=== PATIENT | female | born 1935 | race Caucasian/White ===

== ENCOUNTER 2017-08-05 19:29 | Inpatient (IN) | payer MEDICARE, BC ==
[2017-08-05 20:00] LABS: #Eosinphils 0.2 thou/uL (0.0-0.7); #Lymphocytes 1.9 thou/uL (1.20-3.40); #Monocytes 1.2 thou/uL (0.11-0.59); #Neutrophils 10.9 thou/uL (1.40-6.50); %Basophils 0.3 % (0.0-1.0); %Eosinophils 1.5 % (0.0-10.0); %Lymphocytes 13.3 % (21.0-51.0); %Monocytes 8.1 % (0.0-10.0); Mean Platelet Volume 9.1 fL (7.4-10.4); White Blood Cell (WBC) Count 14.2 thou/uL (4.8-10.8)
[2017-08-05 20:20] LABS: ALT (SGPT) 73 U/L (8-55); AST (SGOT) 100 U/L (5-34); Alkaline Phosphatase 100 U/L (40-150); Anion Gap 16 mmol/L (10-20); BUN (Urea Nitrogen) 30 mg/dL (9.8-20.1); Bilirubin, Total 0.5 mg/dL (0.2-1.2); Calc. Creatinine Clearance 0 mL/min (70-130); Calcium 8.7 mg/dL (7.8-10.44); Carbon Dioxide 25 mmol/L (23-31); Chloride 104 mmol/L (98-107); Estimated GFR-MDRD 30; Globulin 2.8 g/dL (2.4-3.5); Protein, Total 6.4 g/dL (6.0-8.3)
--- NOTE | 2017-08-05 20:22 | RAD ---
AP VIEW OF THE CHEST 08/05/17 INDICATION: Altered mental status. COMPARISON: Prior exam dated 11/29/05. FINDINGS: There are some reticulonodular opacities which are new in both lung bases. This can be seen with a r espiratory bronchiolitis. No air space consolidation is noted. There is a dorsal column stimulator o verlying the lower thoracic spine. Heart size and pulmonary vasculature are normal. No acute osseous abnormality is evident. IMPRESSION: 1. New reticulonodularity involving both lung bases can be seen with entity such as mucus plugg ing or respiratory bronchiolitis. No air space consolidation is evident to suggest ayah bacterial p neumonia. 2. Dorsal column stimulator. 3. Cholecystectomy clips. POS: [facility]
[2017-08-05 20:25] LABS: Troponin I Less than 0.010 ng/mL (< 0.028)
[2017-08-05 20:47] LABS: Bilirubin Negative (Negative); Blood, Urine Trace (Negative); Glucose, Urine (Dipstick) 100 mg/dL (Negative); Ketone, Urine Negative (Negative); Nitrite Negative (Negative); Protein, Urine (Dipstick) 30 mg/dL (Neg-Trace); Urobilinogen 0.2 mg/dL (0.2-1.0)
[2017-08-05 20:49] LABS: Bacteria/HPF None Seen HPF (None Seen); Hyaline Casts/LPF 7-10 HYALINE CAST LPF (0-3 Hyaline); RBC/HPF 0-3 HPF (0-3)
[2017-08-05 20:57] LABS: Renal Epithelial 0-3 HPF (0-3)
[2017-08-05] MEDS ORDERED: hydrALAZINE 20 MG/ML VIAL SLOW IVP PRN (22:28)
--- NOTE | 2017-08-05 23:41 | CT ---
CT OF THE BRAIN WITHOUT CONTRAST 08/05/17 INDICATION: History of inappropriate responses, confusion, incontinence, and altered mental status. COMPARISON: None. FINDINGS: Septum pellucidum and third ventricle are midline. Mild motion artifact slightly limits image detail . There is a subtle area of hypodensity involving the anterior left globus pallidus which may reflec t an acute lacunar infarct. No additional suspicious abnormality is evident. No acute intracranial h emorrhage is noted. Skull and extracranial soft tissues are unremarkable. There is a calcified extra -axial lesion seen adjacent to the falx measuring 9 mm suspicious for a small meningioma on image 22 of series 2. An additional suspicious meningioma is seen adjacent to the falx measuring 5 mm. Addit ional suspicious meningioma is seen near the vertex adjacent to the falx measuring 6 mm on image 25 of series 2. IMPRESSION: 1. Small focal hypodensity within the left globus pallidus may reflect an acute lacunar infarct . 2. No additional acute abnormality demonstrated. 3. Small extra-axial parafalcine meningiomas without associated mass effect. POS: [facility]
[2017-08-06 00:04] VITALS: BMI 25.7
[2017-08-06] MEDS: Sodium Chloride 0.9% 1,000 ML IV SCH ×2 (00:30→13:01)
--- NOTE | 2017-08-06 00:30 | ULT ---
CAROTID DUPLEX ULTRASOUND 08/05/17 INDICATION: CVA and bruit. FINDINGS: There is mild to moderate atherosclerotic plaque involving the common carotid artery and proximal in ternal carotid arteries bilaterally. The peak systolic velocity within the proximal left ICA was 207.8 cm/s with peak systolic velocity w ithin the left common carotid artery distally of 170.1 cm/s. The left IC/CC ratio is 1.22. The peak systolic velocity within the proximal right ICA was 111.5 cm/s whereas the peak systolic ve locity within the right common carotid artery was 70.7 cm/s. The right IC/CC ratio is 1.58. Antegrade flow was seen in both vertebral arteries. IMPRESSION: 1. High grade stenosis involving the proximal left ICA approaching 70% or greater. Recommend de dicated CTA of the neck utilizing IV contrast for additional evaluation. 2. No hemodynamically significant stenosis of the right internal carotid artery. POS: [facility]
--- NOTE | 2017-08-06 03:12 | HP ---
DATE OF ADMISSION: 08/05/2017 ADMITTING PHYSICIAN: Dr. Onur Olson. PRIMARY CARE PHYSICIAN: Dr. Narayan. CHIEF COMPLAINT: Altered mental status, confusion. HISTORY OF PRESENT ILLNESS: The patient is a pleasant 82-year-old, brought in by her family, who no ticed that the patient was lethargic, confused, and incontinent. The patient recently had a right k nee meniscal repair surgery 2 days ago and has been using opiates, but her last dose was at 7 this m orning. She continues to be confused and not at her baseline mentation per family. Brain CT shows possible lacunar infarct. REVIEW OF SYSTEMS: The following complete review of systems was negative, unless otherwise mentione d in the HPI or below: Constitutional: Weight loss or gain, sense of well-being, ability to conduct usual activities, exer cise tolerance. Skin/Breast: Rash, itching, changes in hair growth or loss, nail changes, breast lumps, tenderness, swelling, nipple discharge. Eyes: Vision, double vision, tearing, blind spots, pain. ENT/Mouth: Headaches (location, time of onset, duration, precipitating factors), vertigo, lighthead edness, injury. Vision, double vision, tearing, blind spots, pain, nose bleeding, colds, obstruction , discharge, dental difficulties, gingival bleeding, dentures, neck stiffness, pain, tenderness, mas ses in thyroid or other areas. Cardiovascular: Precordial pain, substernal distress, palpitations, syncope, dyspnea on exertion, o rthopnea, nocturnal paroxysmal dyspnea, edema, cyanosis, hypertension, heart murmurs, varicosities, phlebitis, claudication. Respiratory: Pain, shortness of breath, wheezing, stridor, cough, hemoptysis, fever or night sweats . Gastrointestinal: Poor appetite, dysphagia, indigestion, abdominal pain, heartburn, eructation, zac sea, vomiting, hematemesis, jaundice, constipation, or diarrhea, abnormal stools (phuong-colored, caron y, bloody, greasy, foul smelling), flatulence, hemorrhoids, recent changes in bowel habits. Genitourinary: Urgency, frequency, dysuria, nocturia, hematuria, polyuria, oliguria, unusual (or ch jin in) color of urine, stones, hesitancy, change in size of stream, dribbling, acute retention or incontinence, libido, potency. Musculoskeletal: Pain, swelling, redness or heat of muscles or joints, limitation, of motion, muscu lar weakness, atrophy, cramps. Neurologic/Psychiatric: Convulsions, paralyses, tremor, incoordination, paresthesias, difficulties with memory of speech, sensory or motor disturbances, or muscular coordination (ataxia, tremor), emo tional problems, anxiety, depression, previous psychiatric care, unusual perceptions, hallucinations . Allergy/Immunologic: Skin rash, anemia, bleeding tendency, polydipsia, polyuria, intolerance to hea t or cold. PAST MEDICAL HISTORY: Significant for degenerative joint disease, hypothyroidism, hypertension, CRISELDA D, valvular disease. PAST SURGICAL HISTORY: Right knee surgery, cholecystectomy, hysterectomy, spinal surgery, tummy tuc k, left foot surgery. SOCIAL HISTORY: She lives with her . Nonsmoker, no alcohol. Son is an orthopedic surgeon. FAMILY HISTORY: Reviewed and noncontributory. HOME MEDICATIONS: Aspirin 81 mg q. day, levothyroxine 125 mcg q. day, omeprazole 20 mg q. day, Rodrick vika 0.625 mg q. day, metoprolol 50 mg q. day, Aldactone 25 mg q. day, magnesium 250 mg q. day, calc ium 300 mg q. day, Lyrica 100 mg t.i.d., [place] 10 mg q.4-6 hours as needed, ibuprofen 800 mg q.8 amarilis rs as needed. DRUG ALLERGIES: No known drug allergies. PHYSICAL EXAMINATION: VITAL SIGNS: Temperature 99.9, blood pressure 127/77, pulse 70, respirations 20, satting 97% on annita m air. GENERAL: She is pleasant, nontoxic. Alert and oriented to person, place and time, but mildly repet itive and altered. HEAD: Normocephalic, atraumatic. EYES: PERRL. Extraocular muscles intact. NECK: Full range of motion. Trachea midline. No meningeal signs. CHEST: Chest expansion equal. No wheezing, no rales. Normal breath sounds. CARDIOVASCULAR: She has regular rate and rhythm. There is a systolic ejection murmur 2/6 as well a s bilateral carotid bruits. ABDOMEN: Nontender and nondistended. Positive bowel sounds. EXTREMITIES: No clubbing or cyanosis. Surgical scars and swelling of the right knee and bilateral ankle edema about 1+ to 2+. LABORATORY DATA AND IMAGES: Urinalysis: Yellow cloudy, negative for nitrite, negative for leukocyt e, no bacteria seen. TSH 5.53. Chest x-ray shows new reticulate nodularity involving both lung bas es, which can be consistent with mucus plug or respiratory bronchiolitis, but no airspace consolidat ion is evident. A dorsal column stimulator was seen on chest x-ray with cholecystectomy clips. CK is 0.5, troponin 0.01. CMP: Sodium 141, potassium 4.0, chloride 104, CO2 of 25, BUN 30, creatinine 1.66, glucose 117, AST 100, ALT 73. CBC shows a white count of 14.2, hemoglobin 11.8, hematocrit 3 7.0, MCV 100, platelets 180,000. There are 77% neutrophils. Ammonia level of 19. Once again brain CT performed in ED, official radiologist's impression pending. ASSESSMENT: 1. Lacunar infarct. 2. Acute kidney injury. 3. Hypertension. 4. Chronic congestive heart failure. 5. Hypothyroidism. PLAN: The patient will be admitted to stroke unit. We will consult Stroke Team. We will also do a ppropriate stroke workup to include a carotid ultrasound, echocardiogram and an MRI. The patient is currently on antiplatelet therapy with aspirin. We will increase the dose to 325 mg. We will gent ly hydrate the patient as she does have acute kidney injury, but in light of her history of chronic heart failure, we will gently hydrate her.
[2017-08-06] MEDS ORDERED: Aspirin 325 mg Enteric Coated Tablet PO SCH (09:00)
[2017-08-06] MEDS: Enoxaparin Sodium 40 MG/0.4 ML SYRINGE SC SCH (09:42)
[2017-08-06] MEDS ORDERED: [UNRECOGNIZED DRUG - REMARK] PO SCH (11:45)
[2017-08-06] MEDS ORDERED: Pregabalin 50 MG CAP PO SCH (13:00)
[2017-08-06] MEDS ORDERED: Ibuprofen 800 MG TAB PO PRN (14:14)
[2017-08-06] MEDS ORDERED: HYDROcodone/Acetaminophen 5/325 mg Tablet PO PRN (14:14)
--- NOTE | 2017-08-06 14:14 | PDOC.PN ---
- Subjective Encounter Start Date: 08/06/17 Encounter Start Time: 10:20 Pt seen for followup re: ischemic CVA. Denies chest pain, shortness of breath, fevers or chills. No nausea or vomiting. - Objective MAR Reviewed: Yes Vital Signs & Weight: Vital Signs (12 hours) Temp Pulse Resp BP Pulse Ox 08/06/17 10:55 98.9 F 86 12 150/61 H 96 08/06/17 08:50 98.9 F 86 12 96 08/06/17 07:45 98.6 F 80 12 132/65 96 08/06/17 03:39 99.2 F 74 16 149/73 H 96 Weight Admit Weight 164 lb 9.6 oz Weight 164 lb 9.6 oz I&O: 08/05/17 08/06/17 08/07/17 06:59 06:59 06:59 Intake Total 850 Balance 850 Result Diagrams: 08/05/17 19:47 08/05/17 19:47 EKG Reviewed by me: Yes (Tele: NSR) Phys Exam - Physical Examination Constitutional: NAD HEENT: PERRLA, moist MMs, sclera anicteric, oral pharynx no lesions Neck: no nodes, no JVD, supple, full ROM Respiratory: no wheezing, no rales, no rhonchi, clear to auscultation bilateral Cardiovascular: RRR, no rub Gastrointestinal: soft, non-tender, no distention, positive bowel sounds Musculoskeletal: pulses present Neurological: moves all 4 limbs Lymphatic: no nodes Psychiatric: normal affect, A&O x 3 Skin: no rash, normal turgor, cap refill <2 seconds Dx/Plan (1) Ischemic cerebrovascular accident (CVA) Code(s): I63.9 - CEREBRAL INFARCTION, UNSPECIFIED Status: Acute (2) ILIA (acute kidney injury) Code(s): N17.9 - ACUTE KIDNEY FAILURE, UNSPECIFIED Status: Acute (3) Carotid stenosis Code(s): I65.29 - OCCLUSION AND STENOSIS OF UNSPECIFIED CAROTID ARTERY Status : Acute (4) HTN (hypertension) Code(s): I10 - ESSENTIAL (PRIMARY) HYPERTENSION Status: Chronic (5) Hypothyroidism Code(s): E03.9 - HYPOTHYROIDISM, UNSPECIFIED Status: Chronic (6) Encephalopathy Code(s): G93.40 - ENCEPHALOPATHY, UNSPECIFIED Status: Resolved - Plan PT/OT, out of bed/ambulate, DVT proph w/lovenox * . Continue aspirin (increased dose), start statin. Hydrate pt, recheck creatinine (may need CTA neck when creatinine improves). Consult CV surgery. Await neurology input. TSH mildly elevated, check free T3/T4. Review of Systems - Review of Systems Constitutional: negative: Fever, Chills, Sweats, Weakness, Malaise Respiratory: negative: Cough, Dry, Shortness of Breath, Hemoptysis, SOB with Excertion, Pleuritic Pain, Sputum, Wheezing Cardiovascular: negative: Chest Pain, Palpitations, Orthopnea, Paroxysmal Noc. Dyspnea, Edema, Light Headedness Gastrointestinal: negative: Nausea, Vomiting, Abdominal Pain, Diarrhea, Constipation, Melena, Hematochezia Skin: negative: Rash, Lesions, Saul, Bruising Neurological: negative: Weakness, Numbness, Incoordination, Change in Speech, Confusion, Seizures - Medications/Allergies Allergies/Adverse Reactions: Allergies Allergy/AdvReac Type Severity Reaction Status Date / Time No Known Drug Allergies Allergy Verified 08/06/17 01:21 Medications: Current Medications Aspirin (Ecotrin) 325 mg PO DAILY [facility] Last Admin: 08/06/17 09:41 Dose: 325 mg Enoxaparin Sodium (Lovenox) 40 mg SC 0900 [facility] Last Admin: 08/06/17 09:42 Dose: 40 mg Hydralazine HCl (Apresoline) 10 mg SLOW IVP Q4H PRN PRN Reason: BP > 220/110 Sodium Chloride (Normal Saline 0.9%) 1,000 mls @ 75 mls/hr IV .[id number] [facility] Last Admin: 08/06/17 13:01 Dose: 1,000 mls Pregabalin (Lyrica) 100 mg PO TID [facility] Sodium Chloride (Flush - Normal Saline) 10 ml IVF Q12HR [facility] Last Admin: 08/06/17 09:42 Dose: 10 ml Sodium Chloride (Flush - Normal Saline) 10 ml IVF PRN PRN PRN Reason: Saline Flush
[2017-08-06] MEDS ORDERED: Non-Formulary Item 1 EACH (Pregabalin [Lyrica] 100 MG) PO SCH (15:00)
[2017-08-06] MEDS: Pregabalin 50 MG CAP PO SCH ×2 (15:27→20:45)
--- NOTE | 2017-08-06 20:58 | CON ---
DATE OF CONSULTATION: 08/06/2017 REASON FOR CONSULTATION: Carotid artery evaluation. PERTINENT HISTORY: The patient is an 82-year-old female who underwent right meniscal surgery 2 days ago in [place], [place]. She was placed on postoperative narcotics. She presented here last evening with lethargy, confusion, and incontinence. She was found to have a leukocytosis and urinary tract infection. Noncontrast CT scan of the brain was suggestive of a possible small , focal acute left lacunar infarct. Carotid ultrasound was suggestive of a moderate left ICA stenosis based on peak systolic velocity of 208 cm/second. On this study, the left ICA/CCA ratio was normal at 1.22. Bilateral plaque was noted on the carotid ultrasound. She has had no prior history of stroke. No acute lateralizing signs were described at this time except for a possible element of expressive aphasia. She currently appears normal with no speech or right-sided symptoms. On examination she does have a prominent precordial murmur with transmission to each carotid area; however, this does appear louder in the left neck and could represent a bruit. PAST MEDICAL HISTORY: 1. Degenerative joint disease. 2. Hypothyroidism. 3. Hypertension. 4. Gastroesophageal reflux disease. 5. Some form of valvular heart disease followed by a local material worker, details unknown. PAST SURGICAL HISTORY: 1. Cholecystectomy. 2. Hysterectomy. 3. Bladder suspension. 4. Back surgery. 5. Left foot surgery. 6. Recent right knee surgery as described above. SOCIAL HISTORY: Nonsmoker. Nondrinker. ALLERGIES: None. FAMILY HISTORY: Noncontributory for stroke. CURRENT MEDICATIONS: Lyrica, aspirin, Lipitor, calcium carbonate, Lovenox, estrogen, Synthroid, mag oxide, metoprolol, Protonix, and spironolactone. LABORATORY DATA: Creatinine 1.66. Hemoglobin 11.8, platelet count 180,000, white blood cell count 14.2. Urinalysis was suggestive of a UTI with culture pending. PHYSICAL EXAMINATION: VITAL SIGNS: Height 5 feet 4 inches, weight 164 pounds. Blood pressure 145/97 , heart rate 81, temperature is 98.9. GENERAL: Elderly female in no acute distress. She is fully oriented. HEENT: Grossly unremarkable. NECK: Without JVD or adenopathy. LUNGS: Clear with good inspiratory effort. HEART: Regular rate and rhythm with a prominent precordial murmur as described above. ABDOMEN: Soft and nontender, without palpable mass or hepatosplenomegaly. EXTREMITIES: Without edema. VASCULAR: Palpable radial, femoral, and ankle pulses bilaterally. Possible left carotid bruit superimposed on transmitted heart murmur. NEUROLOGIC: No focal deficits at this time. IMPRESSION: Moderate left carotid artery stenosis as suggested by carotid ultrasound. RECOMMENDATIONS: CTA at this time versus followup carotid ultrasound in 6 months. The patient and family wish, however, to confer with Dr. Narayan prior to proceeding with any further tests. I have asked them to have Dr. Narayan refer her back to me should he wish me to manage this problem. BENIGNO
[2017-08-06] MEDS ORDERED: Atorvastatin Calcium 20 MG TAB PO SCH (21:00)
--- NOTE | 2017-08-06 21:23 | CON ---
DATE OF CONSULTATION: 08/06/2017 CONSULTING PHYSICIAN: Hospitalist Service. IMPRESSION: 1. Transient lethargy secondary to narcotics and urinary tract infection. 2. Asymptomatic chronic small basal ganglia infarct. 3. Moderate left carotid stenosis which does not appear significant at this point to warrant surger y. PLAN: 1. Continue aspirin. 2. Begin statin therapy. 3. Address the urinary tract infection. 4. Follow up with Dr. Narayan. Ms. Mojica is an 82-year-old white female who just recently underwent surgery about 3 days ago. She is receiving some pain medication to address her leg pain. Her family noted that she was very hard to arouse and became concerned. She was subsequently brought into the emergency room for evaluation . She had a CT scan of the brain which shows a moderate amount of small vessel ischemic changes as well as lacunar infarction in the basal ganglia region on the left side. She had a carotid ultrasou nd done which showed a moderate amount of stenosis on the left. She has been followed by Dr. Helene graham or a number of years for this condition and has not been thought to be so severe enough to warrant s urgery. She has not had any new focal neurologic symptoms since admission, she has become more aler t and back to her baseline. She is without complaints of any numbness, tingling, slurred speech or difficulty swallowing. Past history, otherwise negative. ALLERGIES: None. SOCIAL HISTORY: No tobacco use. Lives at home with her . FAMILY HISTORY: Noncontributory. REVIEW OF SYSTEMS: No complaint of headache, nausea, vomiting, vertigo, chest pain, shortness of br eath. PHYSICAL EXAMINATION: GENERAL: She is a healthy appearing elderly lady in no distress. HEENT: Pupils equal and reactive. Conjunctivae clear. Oropharynx clear. NECK: Supple, no lymphadenopathy noted. EXTREMITIES: No cyanosis noted. NEUROLOGIC: She is alert and appropriate. Her speech is fluent and clear. Cranial nerves II-XII a re intact. Motor exam shows no focal weakness. Sensation is intact to light touch. [id number] movements were symmetric. She can walk independently with a little assistance due to the pain in h er leg. IMAGING: EKG shows sinus rhythm with occasional PVCs. SUMMARY: Does not appear to be any acute neurologic issue other than some transient lethargy second jason to medication which might have been amplified by the fact she has a urinary tract infection and a mildly elevated white count. I think she is stable for discharge home on antibiotics and continue her anti-stroke therapy.
[2017-08-07 05:33] LABS: #Basophils 0.1 thou/uL (0.0-0.2); #Eosinphils 0.2 thou/uL (0.0-0.7); #Lymphocytes 1.9 thou/uL (1.20-3.40); #Monocytes 0.6 thou/uL (0.11-0.59); #Neutrophils 3.8 thou/uL (1.40-6.50); %Basophils 0.9 % (0.0-1.0); %Eosinophils 2.6 % (0.0-10.0); %Lymphocytes 29.6 % (21.0-51.0); Hematocrit 31.4 % (36.0-47.0); Mean Platelet Volume 8.9 fL (7.4-10.4); Red Blood Cell (RBC) Count 3.18 mill/uL (4.20-5.40); White Blood Cell (WBC) Count 6.5 thou/uL (4.8-10.8)
[2017-08-07 05:55] LABS: Anion Gap 10 mmol/L (10-20); BUN (Urea Nitrogen) 13 mg/dL (9.8-20.1); Calc. Creatinine Clearance 74 mL/min (70-130); Calcium 8.5 mg/dL (7.8-10.44); Carbon Dioxide 27 mmol/L (23-31); Chloride 108 mmol/L (98-107); Estimated GFR-MDRD 80
[2017-08-07] MEDS ORDERED: Levothyroxine Sodium 112 MCG TAB PO SCH (06:00)
[2017-08-07] MEDS: Sodium Chloride 0.9% 1,000 ML IV SCH (06:29)
[2017-08-07 07:05] LABS: Free T3 1.88 pg/mL (1.71-3.71)
[2017-08-07] MEDS ORDERED: Spironolactone 25 MG TAB PO SCH (08:00)
[2017-08-07] MEDS: Pregabalin 50 MG CAP PO SCH ×2 (08:53→14:44)
[2017-08-07] MEDS ORDERED: Calcium Carbonate 600 MG TAB PO SCH (09:00)
[2017-08-07] MEDS ORDERED: Aspirin 325 MG TAB PO SCH (09:00)
[2017-08-07] MEDS ORDERED: Magnesium Oxide 250 MG TAB PO SCH (09:00)
[2017-08-07] MEDS ORDERED: Nitrofurantoin Monohyd/M-Cryst 100 MG CAP PO SCH (09:00)
[2017-08-07] MEDS: Enoxaparin Sodium 40 MG/0.4 ML SYRINGE SC SCH (09:01)
[2017-08-07] MEDS ORDERED: Amlodipine 5 MG TAB PO SCH (11:30)
[2017-08-07] MEDS ORDERED: hydrALAZINE 20 MG/ML VIAL SLOW IVP SCH (12:15)
--- NOTE | 2017-08-07 13:25 | PDOC.PN ---
- Subjective Encounter Start Date: 08/07/17 Encounter Start Time: 08:20 Pt seen for followup re: ischemic CVA. Denies chest pain, shortness of breath, weakness. - Objective MAR Reviewed: Yes Vital Signs & Weight: Vital Signs (12 hours) Temp Pulse Resp BP Pulse Ox 08/07/17 12:16 87 08/07/17 11:28 87 08/07/17 11:19 98.5 F 74 18 197/77 H 95 08/07/17 09:58 195/75 H 08/07/17 08:50 98.5 F 87 18 97 08/07/17 07:20 98.5 F 87 18 168/72 H 97 08/07/17 03:54 99.9 F H 87 16 203/97 H 95 Weight Admit Weight 164 lb 9.6 oz Weight 166 lb 4.8 oz I&O: 08/06/17 08/07/17 08/08/17 06:59 06:59 06:59 Intake Total 850 2978 Balance 850 2978 Result Diagrams: 08/07/17 05:15 08/07/17 05:15 EKG Reviewed by me: Yes (Tele: NSR) Phys Exam - Physical Examination Constitutional: NAD HEENT: moist MMs Neck: supple Respiratory: clear to auscultation bilateral Cardiovascular: RRR Gastrointestinal: soft Musculoskeletal: pulses present Neurological: non-focal, moves all 4 limbs Psychiatric: normal affect, A&O x 3 Skin: no rash Dx/Plan (1) Ischemic cerebrovascular accident (CVA) Code(s): I63.9 - CEREBRAL INFARCTION, UNSPECIFIED Status: Acute (2) Carotid stenosis Code(s): I65.29 - OCCLUSION AND STENOSIS OF UNSPECIFIED CAROTID ARTERY Status : Acute (3) HTN (hypertension) Code(s): I10 - ESSENTIAL (PRIMARY) HYPERTENSION Status: Chronic (4) Hypothyroidism Code(s): E03.9 - HYPOTHYROIDISM, UNSPECIFIED Status: Chronic (5) Encephalopathy Code(s): G93.40 - ENCEPHALOPATHY, UNSPECIFIED Status: Resolved (6) ILIA (acute kidney injury) Code(s): N17.9 - ACUTE KIDNEY FAILURE, UNSPECIFIED Status: Resolved - Plan PT/OT, out of bed/ambulate, DVT proph w/SCDs * . ILIA resolved. Continue aspirin, statin. Start amlodipine for hypertension (BP still home). Monitor vital signs, titrate antihypertensives as needed. Inpt rehab vs. HH. Review of Systems - Review of Systems Respiratory: negative: Cough, Dry, Shortness of Breath, Hemoptysis, SOB with Excertion, Pleuritic Pain, Sputum, Wheezing Cardiovascular: negative: Chest Pain, Palpitations, Orthopnea, Paroxysmal Noc. Dyspnea, Edema, Light Headedness Neurological: negative: Weakness, Numbness, Incoordination, Change in Speech, Confusion, Seizures - Medications/Allergies Allergies/Adverse Reactions: Allergies Allergy/AdvReac Type Severity Reaction Status Date / Time No Known Drug Allergies Allergy Verified 08/06/17 01:21 Medications: Current Medications Hydrocodone Bitart/Acetaminophen ([place] 5/325) 1 tab PO Q6H PRN PRN Reason: Pain Amlodipine Besylate (Norvasc) 5 mg PO NOW [facility] Stop: 08/07/17 13:30 Last Admin: 08/07/17 11:28 Dose: 5 mg Amlodipine Besylate (Norvasc) 5 mg PO DAILY [facility] Aspirin (Aspirin) 325 mg PO DAILY [facility] Last Admin: 08/07/17 08:57 Dose: 325 mg Atorvastatin Calcium (Lipitor) 20 mg PO HS [facility] Last Admin: 08/06/17 20:47 Dose: 20 mg Calcium Carbonate (Caltrate) 600 mg PO DAILY [facility] Last Admin: 08/07/17 08:57 Dose: 600 mg Enoxaparin Sodium (Lovenox) 40 mg SC 0900 [facility] Last Admin: 08/07/17 09:01 Dose: 40 mg Estrogens Conjugated (Premarin) 0.625 mg PO DAILY [facility] Last Admin: 08/07/17 08:56 Dose: 0.625 mg Hydralazine HCl (Apresoline) 10 mg SLOW IVP Q4H PRN PRN Reason: BP > 220/110 Hydralazine HCl (Apresoline) 10 mg SLOW IVP NOW [facility] Stop: 08/07/17 14:15 Last Admin: 08/07/17 12:16 Dose: 10 mg Sodium Chloride (Normal Saline 0.9%) 1,000 mls @ 75 mls/hr IV .[id number] [facility] Last Admin: 08/07/17 06:29 Dose: 1,000 mls Ibuprofen (Motrin) 800 mg PO Q8H PRN PRN Reason: Pain Last Admin: 08/06/17 15:44 Dose: 800 mg Levothyroxine Sodium (Synthroid) 112 mcg PO 0600 [facility] Last Admin: 08/07/17 06:29 Dose: 112 mcg Magnesium Oxide (Magnesium Oxide) 250 mg PO DAILY [facility] Last Admin: 08/07/17 08:57 Dose: 250 mg Metoprolol Succinate (Toprol Xl) 50 mg PO DAILY [facility] Last Admin: 08/07/17 08:57 Dose: 50 mg Nitrofurantoin Macrocrystals (Macrobid) 100 mg PO BID [facility] Last Admin: 08/07/17 09:07 Dose: 100 mg Pantoprazole Sodium (Protonix) 40 mg PO DAILY [facility] Last Admin: 08/07/17 08:57 Dose: 40 mg Pregabalin (Lyrica) 100 mg PO TID [facility] Last Admin: 08/07/17 08:53 Dose: 100 mg Sodium Chloride (Flush - Normal Saline) 10 ml IVF Q12HR [facility] Last Admin: 08/07/17 09:02 Dose: Not Given Sodium Chloride (Flush - Normal Saline) 10 ml IVF PRN PRN PRN Reason: Saline Flush Spironolactone (Aldactone) 25 mg PO QAM-WM [facility] Last Admin: 08/07/17 08:53 Dose: 25 mg
[2017-08-07 15:35] VITALS: BP 156/66; TEMP 99.3
--- NOTE | 2017-08-07 16:43 | DIS ---
DATE OF ADMISSION: 08/05/2017 DATE OF DISCHARGE: 08/07/2017 PRIMARY CARE PHYSICIAN: Gera Narayan M.D. DISCHARGE DIAGNOSES: 1. Ischemic cerebrovascular accident. 2. Carotid stenosis. 3. Transient lethargy, likely secondary to narcotics. 4. Urine cultures negative. CONDITION OF PATIENT AT THE TIME OF DISCHARGE: Stable. I assessed Ms. Mojica on the day of discharge. She denies any chest pain or shortness of breath. Sh e denies any fevers or chills. Blood pressure was elevated, but subsequently decreased after admini stration of hydralazine and amlodipine. S1 and S2 are heard, regular. Lungs are clear to auscultat ion bilaterally. DISCHARGE MEDICATIONS: Aspirin 325 mg daily, amlodipine 5 mg daily, Lipitor 20 mg at bedtime, calci um carbonate 600 mg daily, Premarin 0.625 mg daily, ibuprofen 800 mg every 8 hours as needed, levoth yroxine 112 mcg daily, magnesium 250 mg daily, Toprol-XL 50 mg daily, omeprazole 20 mg daily, Lyrica 100 mg 3 times a day, and spironolactone 25 mg daily. HOSPITAL COURSE: Ms. Mojica is a pleasant 82-year-old lady who was admitted to [facility] on 08/05/2017 for lethargy and suspected stroke. CT scan of the brain on 08/05/2017 sh owed small focal hypodensity within the left global pallidus, which may reflect an acute lacunar inf arct. She was seen by Neurology Service. Carotid Dopplers showed high grade stenosis involving the proximal left ICA approaching 70% or greater. Dedicated CT angiogram of the neck with IV contrast was recommended. There was no hemodynamically stenosis of the right internal carotid artery. She w as seen by Cardiovascular Surgery. After discussion with CV Surgery Service, Ms. Mojica did not wish to have further testing at this time. She will follow up with her primary care physician. A 2D echocardiogram showed left ventricular ejection fraction 60%-65% and grade 2/3 diastolic dysfun ction. She had moderately elevated pulmonary artery pressures at 56 mmHg. She was seen by therapy services. Recommendations were made for either inpatient rehabilitation or home with home health. Ms. Mojica did not wish to have home health services at home or to go to [facility] rehabilitation. She wished to go home. She will follow up with her primary care physician if she needs referral for home health. Her blood pressure was elevated on the day of discharge. It improved with hydralazine and amlodipin e. I recommended another night stay in the hospital to ensure her blood pressure remained stable. However, she did not wish to stay in the hospital and we will follow up with her primary care physic jamey. Risks were explained to her of worsening blood pressure and its complications. She is making an informed decision to follow up with her primary care physician. She is advised to check her bloo d pressure and heart rate 3 times a day and to follow up with her primary care physician with those numbers. Many thanks for allowing me to participate in your patient's care. Please feel free to contact me w ith any questions or concerns. DISCHARGE DESTINATION: Home. TOTAL AMOUNT OF TIME SPENT COORDINATING THIS DISCHARGE: 33 minutes.
[2017-08-08] MEDS ORDERED: Amlodipine 5 MG TAB PO SCH (09:00)
--- NOTE | 2017-08-08 15:23 | EKG ---
Test Reason : AMS Blood Pressure : / mmHG Vent. Rate : 071 BPM Atrial Rate : 071 BPM P-R Int : 142 ms QRS Dur : 074 ms QT Int : 376 ms P-R-T Axes : 080 -02 053 degrees QTc Int : 408 ms Normal sinus rhythm No STEMI Abnormal ECG Confirmed by RAHAT JOHNSON M.D. ([id number]), slot editor ROXANN CHAN ([id number] on 08/08/2017 3:22:33 PM Referred By: ALEX Confirmed By:RAHAT JOHNSON M.D.
== END 2017-08-07 16:44 | disposition home or self-care (01) | DRG 64 ==
LOC: ERS 19:29 → 2SE 23:28 → 2NO 08-07 15:39 → 2SE 08-07 15:42
PROVIDERS: ADMIT Internal Medicine Addiction Medicine; ATTEND Internal Medicine Addiction Medicine
DX: I63.232 Cerebral infarction due to unspecified occlusion or stenosis of left carotid arteries (principal); G93.40 Encephalopathy, unspecified; N17.9 Acute kidney failure, unspecified; I50.9 Heart failure, unspecified; Z90.49 Acquired absence of other specified parts of digestive tract; Z90.710 Acquired absence of both cervix and uterus; I11.0 Hypertensive heart disease with heart failure; E03.9 Hypothyroidism, unspecified; R53.83 Other fatigue; T40.605A Adverse effect of unspecified narcotics, initial encounter; D72.829 Elevated white blood cell count, unspecified
CPT/HCPCS: 36415; 36416; 51701; 70450; 71010; 80048; 80053; 80061; 81003; 81015; 82140; 82553; 84439; 84443; 84481; 84484; 85025; 87086; 93005; 93306; 93880; 96360; 96361; A4216; A4353; G8978-GP-CM; G8979-GP-CK; G8987-GO-CJ; G8988-GO-CI; G8996-GN-CH; G8997-GN-CH; J0360; J1650

== ENCOUNTER 2017-10-15 09:33 | Day surgery (SDC) | payer MEDICARE, BC ==
[2017-10-14 13:15] VITALS: BMI 23.4
[2017-10-15] MEDS ORDERED: Diprivan 20 ML ONE (12:01)
--- NOTE | 2017-10-15 12:47 | OP ---
INDICATIONS FOR SURGERY: This is an 82-year-old woman with paroxysmal atrial fibrillation. PROCEDURE PERFORMED: Electrical cardioversion. DESCRIPTION OF PROCEDURE: The patient was taken to the PACU. The patient is sedated by anesthesiolo gy. The patient was shocked with 200 joules of synchronized electricity. The patient converted to n ormal sinus rhythm. IMPRESSION: Successful electrical cardioversion.
--- NOTE | 2017-10-15 13:13 | ECHO ---
TRANSESOPHAGEAL ECHOCARDIOGRAM: DATE OF PROCEDURE: 10/15/17 INDICATION: 82-year-old woman with paroxysmal atrial fibrillation. DESCRIPTION OF PROCEDURE: The patient was taken to the PACU. The patient was sedated by anesthesiology. A transesophageal probe was placed in the distal esophagus and stomach. Echocardiographic images were obtained. The transesophageal probe was removed. FINDINGS: 1. Normal left ventricular systolic function. 2. Left atrial enlargement. 3. Aortic valve leaflets are mildly sclerotic. 4. Mild to moderate mitral regurgitation. 5. Mild to moderate aortic regurgitation. 6. Mild to moderate tricuspid regurgitation. 7. No thrombus noted in the left atrium or left atrial appendage. 8. Atherosclerotic debris in the descending aorta. IMPRESSION: No formed thrombus in the left atrium or left atrial appendage.
== END 2017-10-15 13:10 | disposition home or self-care (01) ==
LOC: SDC 09:33
PROVIDERS: ATTEND Internal Medicine Cardiovascular Disease
DX: I48.0 Paroxysmal atrial fibrillation (principal); I25.10 Atherosclerotic heart disease of native coronary artery without angina pectoris; M19.90 Unspecified osteoarthritis, unspecified site; K21.9 Gastro-esophageal reflux disease without esophagitis; I10 Essential (primary) hypertension; E07.9 Disorder of thyroid, unspecified; Z79.01 Long term (current) use of anticoagulants; Z79.82 Long term (current) use of aspirin; Z79.890 Hormone replacement therapy; Z79.899 Other long term (current) drug therapy; Z90.49 Acquired absence of other specified parts of digestive tract; Z90.710 Acquired absence of both cervix and uterus; Z98.890 Other specified postprocedural states; Z86.73 Personal history of transient ischemic attack (TIA), and cerebral infarction without residual deficits
CPT/HCPCS: 92960; 93005; 93010; 93312; J2704

== ENCOUNTER 2018-02-10 15:55 | Outpatient (CLI) | payer MEDICARE, BC ==
[2018-02-10 17:03] LABS: Anion Gap 13 mmol/L (10-20); BUN (Urea Nitrogen) 25 mg/dL (9.8-20.1); Calc. Creatinine Clearance 0 mL/min (70-130); Calcium 8.8 mg/dL (7.8-10.44); Carbon Dioxide 28 mmol/L (23-31); Chloride 104 mmol/L (98-107); Estimated GFR-MDRD 49; Glucose 121 mg/dL (83-110); Potassium 4.8 mmol/L (3.5-5.1); Sodium 140 mmol/L (136-145)
== END 2018-02-10 15:56 | disposition home or self-care (01) ==
LOC: LABBT 15:55
PROVIDERS: ATTEND Internal Medicine Cardiovascular Disease
DX: Z01.818 Encounter for other preprocedural examination (principal); I48.0 Paroxysmal atrial fibrillation
CPT/HCPCS: 80048

== ENCOUNTER 2018-02-12 06:19 | Day surgery (SDC) | payer MEDICARE, BC ==
[2018-02-10 16:15] VITALS: BMI 26.4
[2018-02-12] MEDS ORDERED: PROPOFOL 200 MG/20 ML VIAL ONE (10:07)
[2018-02-12] MEDS ORDERED: PHENYLEPHRINE-NS 100 MCG/ML 10 ML SYRINGE ONE (10:07)
[2018-02-12] MEDS ORDERED: Lidocaine 1% PF 5 ML VIAL ONE (10:07)
--- NOTE | 2018-02-12 14:49 | OP ---
PROCEDURE NOTE: Date: 02/12/18 PROCEDURE: Electrical cardioversion. INDICATION FOR PROCEDURE: This is an 82-year-old woman with paroxysmal atrial fibrillation. DESCRIPTION OF PROCEDURE: The patient taken to the PACU. The patient was sedated by anesthesiology. The patient was shocked wi th 200 joules synchronized electricity. The patient converted to normal sinus rhythm. IMPRESSION: Successful electrical cardioversion.
== END 2018-02-12 10:45 | disposition home or self-care (01) ==
LOC: CCL 06:19
PROVIDERS: ATTEND Internal Medicine Cardiovascular Disease
PROC: 5A2204Z Restoration of Cardiac Rhythm, Single (ICD-10-PCS; principal; 2018-02-12)
DX: I48.0 Paroxysmal atrial fibrillation (principal); I65.29 Occlusion and stenosis of unspecified carotid artery; I38 Endocarditis, valve unspecified; M19.90 Unspecified osteoarthritis, unspecified site; K21.9 Gastro-esophageal reflux disease without esophagitis; I10 Essential (primary) hypertension; E07.9 Disorder of thyroid, unspecified; Z86.73 Personal history of transient ischemic attack (TIA), and cerebral infarction without residual deficits; Z98.890 Other specified postprocedural states
CPT/HCPCS: 92960; 93005; 93010; J2001; J2704